=== PATIENT | male | born 1975 | race African-American/Black ===

== ENCOUNTER 2018-04-08 15:21 | Emergency (ER) | payer OTHER ==
[2018-04-08] MEDS: MORPHINE SULFATE 4 MG/ML DISP.SYRIN. IV (16:13)
[2018-04-08] MEDS: ONDANSETRON PF 4 MG/2 ML VIAL. IV (16:13)
[2018-04-08] MEDS ORDERED: CONTRAST GIVEN. MC (16:15)
[2018-04-08] MEDS: IOHEXOL 300 MG/ML 100ML VIAL. IV ×2 (16:15→17:00)
[2018-04-08 16:27] LABS: ADD MAN DIFF? NO
[2018-04-08 16:29] LABS: BASO # 0.1 x10^3/uL (0.0-0.2); BASO % 1 % (0-3); EOS # 0.4 x10^3/uL (0.0-0.7); EOS % 6 % (0-3); HEMATOCRIT 46.8 % (39.0-53.0); HEMOGLOBIN 15.7 g/dL (13.0-17.5); LYMPH # 1.7 x10^3/uL (1.0-4.8); LYMPH % 23 % (24-48); MEAN CORPUSCULAR HEMOGLOBIN 32 pg (25-35); MEAN CORPUSCULAR HGB CONC 34 g/dL (31-37); MEAN CORPUSCULAR VOLUME 95 fL (79-100); MONO % 13 % (0-9); NEUT # 4.3 x10^3uL (1.8-7.7); NEUT % 57 % (31-73); PLATELET COUNT 251 x10^3/uL (140-400); RED BLOOD COUNT 4.96 x10^6/uL (4.30-5.70); RED CELL DISTRIBUTION WIDTH 13.9 % (11.5-14.5); WHITE BLOOD COUNT 7.5 x10^3/uL (4.0-11.0)
[2018-04-08 16:41] LABS: ANION GAP 2 (6-14); BLOOD UREA NITROGEN 15 mg/dL (8-26); BUN/CREATININE RATIO 15 (6-20); CALCIUM 8.8 mg/dL (8.5-10.1); CARBON DIOXIDE 31 mmol/L (21-32); CHLORIDE 104 mmol/L (98-107); GFR 99.2; GLUCOSE 95 mg/dL (70-99); SODIUM 137 mmol/L (136-145)
[2018-04-08 16:47] LABS: ALBUMIN 3.6 g/dL (3.4-5.0); ALBUMIN/GLOBULIN RATIO 0.8 (1.0-1.7); ALK PHOS 79 U/L (46-116); ALT (SGPT) 33 U/L (16-63); AST (SGOT) 29 U/L (15-37); LIPASE 67 U/L (73-393); TOTAL BILIRUBIN 0.8 mg/dL (0.2-1.0); TOTAL PROTEIN 8.1 g/dL (6.4-8.2)
[2018-04-08 17:00] LABS: BILIRUBIN,URINE NEGATIVE (NEG); CLARITY,URINE CLEAR; COLOR,URINE YELLOW; GLUCOSE,URINE NEGATIVE (NEG); NITRITE,URINE NEGATIVE (NEG); PROTEIN,URINE NEGATIVE (NEG-TRACE)
[2018-04-08 17:06] LABS: BACTERIA,URINE 0 /HPF (0-FEW); RBC,URINE 0 /HPF (0-2); WBC,URINE OCC /HPF (0-4)
== END 2018-04-08 17:50 | disposition home or self-care (01) ==
LOC: ER 15:21
DX: R10.10 Upper abdominal pain, unspecified (principal); R11.2 Nausea with vomiting, unspecified; R19.7 Diarrhea, unspecified; J45.909 Unspecified asthma, uncomplicated
CPT/HCPCS: 36415; 74177; 76705; 80053; 81001; 83690; 85025; 96374; 96375; 99285-25; J2270; J2405; Q9967

== ENCOUNTER 2019-08-29 12:00 | Emergency (ER) | payer SELFPAY ==
[~2019-08-29] VITALS: Ht 190.5 cm; Wt 111.1 kg
[~2019-08-29 12:00] MED LIST: ALBU2.5V8 IH; ALBU2.5V8 INH; FLUT1DIS3 IH; METH4TAB2 PO; MONT10TA49 PO; ONDA4TAB10 SL; PRED50TA PO
[2019-08-29 12:38] VITALS: BP 138/83
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
[2019-08-29] MEDS ORDERED: LIDOCAINE WITH 8.4% SOD BICARB 3 ML DISP.SYRIN. ONE (13:03)
[2019-08-29] MEDS ORDERED: LIDOCAINE WITH 8.4% SOD BICARB 3 ML DISP.SYRIN. INJ ONE (13:15)
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
== END 2019-08-29 15:47 | disposition home or self-care (01) ==
LOC: ER 12:00
DX: S01.511A Laceration without foreign body of lip, initial encounter (principal); J45.909 Unspecified asthma, uncomplicated; J30.2 Other seasonal allergic rhinitis; Y90.5 Blood alcohol level of 100-119 mg/100 ml; Y08.89XA Assault by other specified means, initial encounter; Y93.89 Activity, other specified; Y92.89 Other specified places as the place of occurrence of the external cause; Y99.8 Other external cause status
CPT/HCPCS: 40650; 70450; 70486; 99284

== ENCOUNTER 2021-04-11 09:49 | Emergency (ER) | payer OTHER ==
[~2021-04-11] VITALS: Ht 190.5 cm; Wt 109.0 kg
[2021-04-11] MEDS ORDERED: NAPROXEN 500 MG TABLET PO STA (11:13)
[2021-04-11] MEDS ORDERED: HYDROcodone/APAP 5/325MG 1 TAB TABLET PO ONE (11:15)
[2021-04-11] MEDS ORDERED: CYCLOBENZAPRINE 10 MG TABLET. PO ONE (11:15)
[2021-04-11] MEDS ORDERED: NAPR500T8 PO (11:21)
[2021-04-11] MEDS ORDERED: CYCL10TA2 PO (11:21)
[2021-04-11] MEDS ORDERED: GABA300C18 PO (11:21)
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
[2021-04-11 13:35] VITALS: BP 153/69
== END 2021-04-11 12:06 | disposition home or self-care (01) ==
LOC: ER 09:49
DX: G89.29 Other chronic pain (principal); M54.41 Lumbago with sciatica, right side; M54.42 Lumbago with sciatica, left side; J45.909 Unspecified asthma, uncomplicated; F17.200 Nicotine dependence, unspecified, uncomplicated
CPT/HCPCS: 99285-25